=== PATIENT | male | born 1940 | race Caucasian/White ===

== ENCOUNTER 2016-11-28 05:29 | Day surgery (SDC) | payer MEDICARE, OTHER ==
[~2016-11-28] VITALS: Ht 177.8 cm; Wt 85.3 kg
[2016-11-28] VITALS (11 sets, daily range): BP systolic 131–155; BP diastolic 66–87; PULSE 60–67; RESP 12–21; O2SAT 98–100
[~2016-11-28 05:29] MED LIST: ASCO-294 PO; ASPI-973 PO; CALC-78 PO; CYCL5TAB PO; FOLI-52 PO; LIP40 PO; LISI10TA PO; NITR0.4T SL
[2016-11-28] MEDS ORDERED: Propofol 10,000 mCg/mL 20 mL Inj ONE (05:30)
[2016-11-28] MEDS ORDERED: Ondansetron 2 mg/mL 2 mL Inj ONE (05:30)
[2016-11-28] MEDS ORDERED: MetoCLOpramide 5 mg/mL 2 mL Inj ONE (05:30)
[2016-11-28] MEDS ORDERED: Dexamethasone 4 mg/mL Inj ONE (05:30)
[2016-11-28] MEDS ORDERED: Mitomycin Inj 40 MG in Syringe 1 EACH IRRIGATION ONE (06:00)
[2016-11-28] MEDS ORDERED: Levofloxacin 500 mg/100 mL D5W IV ONE (06:00)
[2016-11-28] MEDS: Lactated Ringer's 1,000 ML IV SCH ×2 (06:55→07:26)
--- NOTE | 2016-11-28 07:19 | PCM.HPANE ---
Patient Data Surgeon Admitting Provider: Attending Provider:Kar Paredes MD Primary Care Physician:Fernanda Chadwick DO Other Provider:Agata Dallasingham Anesthesia Reason for Visit Bladder Tumor Ht/WT & BMI Height (Feet): 5 Height (Inches): 10.00 Weight (Kilograms): 85.3 Body Mass Index 26.00 Allergies Coded Allergies: No Known Allergies (Verified Allergy, Unknown, 11/27/16) Past Anesthesia History Anesthesia History: Denies:: Anesthesia Reactions, Malignant Hyperthermia Diabetes History Hx Diabetes?: No MRSA MRSA: No Medications Blood Thinner: Aspirin Hypertension Medication: Yes (LISINOPRIL) Home Meds Incl Beta Samy: No Reported Medications Ascorbate Calcium (Vitamin C)500 Mg [id number] Mg PO DAILY 11/27/16 Nitroglycerin SL (Nitrostat)0.4 Mg Tab.subl0.4 Mg SL Q5MIN PRN chest pain #1 BOTTLE 11/27/16 Multivitamin/Iron/Folic Acid (Centrum Complete Multivit Tab)1 Each Tablet1 Each PO DAILY 11/27/16 Lisinopril 10 Mg [id number] Mg PO DAILY 30 Days Ref 0 11/27/16 Atorvastatin (Lipitor)40 Mg [id number] Mg PO DAILY Ref 0 11/27/16 Cyclobenzaprine 5 Mg Tablet5-10 Mg PO TID PRN Spasm 11/27/16 Calcium Carbonate/Vitamin D3 (Calcium 500 + Vit D Caplet)1 Each Tablet1 Each PO DAILY 11/27/16 Aspirin 81 Mg [id number] Mg PO DAILY Ref 0 11/27/16 History History of ENT Problems?: Yes Other HEENT Pertinent History: S/P TONSILLECTOMY Hx of Heart Problems?: Yes Cardiovascular History: Positive for:: Hypertension (HYPERLIPIDEMIA) Denies:: Heart Murmur (ECHO 07/2016 EF 55-60%) Hx of Respiratory Problem?: No Respiratory History: Denies:: Use of C-PAP Machine Hx Neurologic Problems?: Yes Neurological History: Positive for:: TIA (TIA VS TRANSIENT GLOBAL AMNESIA 2013) Hx of GI Problems?: No Hx of Problems?: Yes Other Pertinent History: HX BLADDER CA S/P CYSTOS,TURBT C/OF LUTS SMALL BLADDER TUMOR=CURRENT PROBLEM Male Hx: Positive for:: Prostate Problems (BPH W/ LUTS) Denies:: Scrotal Mass Testicular Surgery Skin History: Denies:: History Skin Disorders? Pressure Ulcers Hx Musculoskeletal Problems?: Yes Musculoskeletal History: Positive for:: Musculoskeletal Trauma (S/P ORIF RT HAND,RT KNEE SCOPE/MENISECTOMY) Denies:: Osteoarthritis (HX BONE LESION) Hx of Psycho/Social Problems?: No Hx Surgeries?: Yes (CYSTOS,TURBT,TONSILLECTOMY,ORIF RT HAND,RT KNEE SCOPE) Hx Any Other Health Problems?: Yes Other History: Positive for:: Cancer (BLADDER) Hospitalization Denies:: Endocrine Disease Thyroid Disease Hx Alcohol Use: NoHx Substance Use: No Smoking Status: Never Smoker Have You Smoked inLast 12 mo: No Stop/Bang Treated for Sleep Apnea?: No Do You Have a CPAP Machine?: No S-Snoring: Do You Snore Loudly: No T-Tired: feel tired, fatigued: No O-Obsered: Observed not breath: No P-Blood Pressure: treated: Yes B- Body Mass Index > 35 kg/m2: No A- Age over 50: Yes N- Neck Large Circumference: No G- Gender Male: Yes NUPUR Total Score: 3 NUPUR Risk Assessment: Low Risk, <3 Yes Risk Assessment Category Category 1A: Patient has history of documented sleep apnea, and HAS NOT received any narcotic, sedative or anesthesia administration during this stay. Category 1B: Patient has history of documented sleep apnea, and HAS received any narcotic , sedative or anesthesia administration during this stay Category 2: Patient has SUSPECTED Obstructive Sleep Apnea, and HAS received any narcotic , sedative or anesthesia administration during this stay. Category 3: Patient has SUSPECTED Obstructive Sleep Apnea and HAS NOT received narcotic, sedative or anesthesia administration during this stay. Category 4: Outpatient in Procedural Areas with known sleep apnea or who screen positive for High Risk via the STOP/BANG questionnaire. Exam Exam Vital Signs Vital Signs Date Time Temp Pulse Resp B/P Pulse Ox O2 Delivery O2 Flow Rate FiO2 11/28/16 06:55 35.8 65 14 131/77 98 Room Air General Appearance: Oriented X3 HEENT/AIRWAY: MP 2 Lungs: Normal Air Movement Heart: Regular Rate/Rhythm Meds/Labs/Diagnostics Admission Meds Current Medications Lactated Ringer's (Lr) 1,000 ml @ 120 mls/hr Q8H20M IV Last administered on t 06:55; Start 11/28/16 at 05:00; Stop 11/28/16 at 13:19 Plan Impression Patient chart reviewed, patient interviewed and anesthestic plan with risks, benefits, and alternatives discussed, and informed consent obtained. NPO Status: 1730 ASA Physical Status: ASA3 Severe Disease Anesthetic Plan: GA Bene/Risks/Altern/Consents: Yes HP Complete Prior to Induction: Yes Raphael Hunter MD Nov 28, 2016 07:19
[2016-11-28] MEDS ORDERED: Lactated Ringer's 1,000 ML IV SCH (07:48)
[2016-11-28] MEDS ORDERED: Lactated Ringer's 500 ML IV PRN (07:48)
[2016-11-28] MEDS ORDERED: Labetalol 5 mg/mL 4 mL Inj IV PRN (07:50)
[2016-11-28] MEDS ORDERED: fentaNYL-PF 50 mCg/mL 2 mL Inj IVPUSH PRN (07:50)
[2016-11-28] MEDS ORDERED: Ondansetron 2 mg/mL 2 mL Inj IVPUSH PRN (07:50)
[2016-11-28] MEDS ORDERED: EPHEDrine Sulfate 50 mg/mL Inj IVPUSH PRN (07:50)
[2016-11-28] MEDS ORDERED: Phenylephrine 10,000 mCg/mL Inj IVPUSH PRN (07:50)
[2016-11-28] MEDS ORDERED: Dexamethasone 4 mg/mL Inj IVPUSH PRN (07:50)
[2016-11-28] MEDS ORDERED: HYDROmorphone 1 mg/mL Inj IVPUSH PRN (07:50)
[2016-11-28] MEDS ORDERED: MetoCLOpramide 5 mg/mL 2 mL Inj IVPUSH PRN (07:50)
[2016-11-28] MEDS ORDERED: Belladonna Alk-Opium 60 mg Rectal Suppository RECTAL ONE ×2 (08:20→08:29)
--- NOTE | 2016-11-28 08:51 | PCM.SURGPO ---
Immediate Operative Note Date of Surgery: Nov 28, 2016 Pre Operative Diagnosis Bladder tumor Post Operative Diagnosis Bladder tumor, bladder lesion Procedure Cystoscopy, transurethral resection of bladder tumor (1-2cm), bladder biopsy, and Mitomycin intravesical instillation Surgeon and Credit Risk Modeler Surgeon: Kar Paredes MD Assistants: None Findings Cystoscopy revealed approx. 1cm papillary bladder tumor at L dome and approx. 0.5cm mildly edematous and mildly erythematous bladder lesion on R trigone ( approx. 1cm posterior to R ureteral orifice). Bladder tumor and bladder lesion were resected using bipolar loop electrocautery. Mitomycin intravesical instillation was performed at the end of the case. Complications There were no periprocedural complications identified. Surgical Specimen Removed: Yes Specimen sent to Pathology: Yes Surgical Specimen description: L dome bladder tumor, R trigone bladder lesion Anesthetic Administered: GA Grafts, Implants: Other (20F Locke catheter clamped) Output, Estimated Blood Loss: <5 Blood Admin during surgery: No Additional information Patient to be discharged home with Locke catheter when stable, to return to see me in 5-6 days for post-op visit and trial of void (AM appt.). Kar Paredes MD Nov 28, 2016 08:51
--- NOTE | 2016-11-28 08:57 | PCM.DISURG ---
Surgical Discharge Instruction Date of Service Nov 28, 2016 Dates of Hospitalization Date of Hospital Admission Nov 28, 2016 Providers Admitting Physician: Kar Paredes MD Primary Care Physician: Fernanda Chadwick DO Attending Physician: Kar Paredes MD Discharge Diagnosis Discharge Diagnosis Bladder tumor, bladder lesion Post Operative diagnosis Bladder tumor, bladder lesion Diet Discharge Diet: No restrictions, Other (Drink at least 8-12 8oz. glasses (2-3 liters) of fluids per day as long as there is blood in the urine) Activity Discharge Activity-General: No driving while taking narcotic, Other (No strenuous exercise/activity or moderate or heavy lifting (> 10 lbs.) as long as there is blood in the urine) Dressing and Incisional Care Hygiene: May shower Follow Up Plan Follow-up Provider (F9): Kar Paredes MD Follow-up appointment: Days (5-6 days for post-op visit and trial of void (AM appt.)) Call your provider for: Fever, Chills, Vomiting, Other (Non-draining Locke catheter) Kar Paredes MD Nov 28, 2016 08:57
[2016-11-28] MEDS ORDERED: HYDROcodone-APAP 5-325 mg Tablet PO PRN (09:00)
--- NOTE | 2016-11-28 09:33 | PCM.ANEP1 ---
Post Anesthesia Phase 1 PACU Phase 1 Assessment Date of Service: Nov 28, 2016 Vital Signs Vital Signs Date Time Temp Pulse Resp B/P Pulse Ox O2 Delivery O2 Flow Rate FiO2 11/28/16 09:20 36.3 63 12 143/66 99 Room Air 11/28/16 09:10 60 13 146/70 99 Room Air 11/28/16 09:05 36.5 60 13 135/69 98 Room Air 11/28/16 09:00 61 12 136/67 98 Room Air 11/28/16 08:55 64 15 135/70 98 Room Air 11/28/16 08:50 63 14 152/76 99 Room Air 11/28/16 08:45 65 14 152/75 98 Room Air 11/28/16 08:40 67 18 144/81 100 Simple Mask 8 11/28/16 08:37 36.5 64 21 155/87 100 Simple Mask 8 11/28/16 06:55 35.8 65 14 131/77 98 Room Air Anesthetic Administered: GA Level of Alertness: Awake, talking Pain: No Nausea or Vomiting: No Oxygen Delivery: Room Air Lungs: Normal Air Movement Raphael Hunter MD Nov 28, 2016 09:33
--- NOTE | 2016-11-28 09:33 | PCM.ANEP2 ---
Post Anesthesia Evaluation ASA/CMS Post Anesthesia VS in Patient's Normal Range?: Yes Resp Stable; Airway Patent?: Yes CV Function & Hydration Stable: Yes Mental Status Recovered?: Yes Pain control Satisfactory?: Yes N/V Control Satisfactory?: Yes Raphael Hunter MD Nov 28, 2016 09:33
--- NOTE | 2016-11-29 12:42 | OP ---
[address] [address] OPERATIVE REPORT PATIENT: ROMAN HALL : 1940 MR#: [id number] ADMIT: 11/28/2016 JOB ID: [id number] DATE OF SURGERY: 11/28/2016 PREOPERATIVE DIAGNOSIS(ES): Bladder tumor. POSTOPERATIVE DIAGNOSIS(ES): Bladder tumor, bladder lesion. PROCEDURE: Cystoscopy, transurethral resection of bladder tumor (1-2 cm), bladder biopsy, and Mitomycin intravesical instillation. SURGEON: Kar Paredes MD. ENGINE INSPECTOR: None. ANESTHESIA: General. ESTIMATED BLOOD LOSS: Less than 5 mL. SPECIMENS: Left dome bladder tumor, right trigone bladder lesion. DRAINS: A 20-Bur[place] Locke catheter, clamped. COMPLICATIONS: None. CONDITION: Stable. FINDINGS: Cystoscopy revealed an approximately 1 cm papillary bladder tumor at the left dome and an approximately 0.5 cm mildly edematous and mildly erythematous bladder lesion on the right trigone (approximately 1 cm posterior to the right ureteral orifice). Bladder tumor and bladder lesion were resected using bipolar loop electrocautery. Mitomycin intravesical instillation was performed at the end of the case. INDICATIONS: The patient is a 76-year-old male with a history of bladder cancer found on office cystoscopy to have a bladder tumor. The patient now presents for cystoscopy, transurethral resection of bladder tumor, and Mitomycin intravesical instillation. PROCEDURE: The patient was brought to the operating room and placed supine on the operating room table. The patient was given Levaquin IV antibiotics. Sequential compression device boots were placed. General anesthesia was administered. The patient was brought down into the dorsal lithotomy position. The patient was prepped and draped in standard surgical fashion. A 26-Burundian continuous flow resectoscope was placed into the distal urethra without difficulty. Cystoscopy revealed normal distal urethra, moderate to severe trilobar prostatic hypertrophy with moderately enlarged intravesical median prostatic lobe, moderately trabeculated bladder, no bladder calculi, an approximately 1 cm papillary bladder tumor at the left dome, an approximately 0.5 cm mildly edematous and mildly erythematous bladder lesion on the right trigone (approximately 1 cm posterior to the right ureteral orifice), and bilateral ureteral orifices in normal position. The bladder tumor and the bladder lesion were resected in their entirety using Thunderbeat bipolar loop electrocautery and sent to pathology for permanent specimen. The bases of the bladder tumor resected area and bladder biopsied area, including normal surrounding bladder mucosa, were fulgurated using bipolar loop electrocautery. Excellent hemostasis was achieved. No evidence for bladder perforation was seen. Bilateral ureteral orifices were seen to be intact and well preserved at the end of the case. The continuous flow resectoscope was removed from the patient. A 22 Bur[place] Locke catheter was placed through the urethra and into the bladder without difficulty. Locke catheter balloon was inflated with 10 mL sterile water. Locke catheter was initially placed to straight drainage, and the bladder was allowed to drain completely via the Locke catheter. Then Mitomycin intravesical instillation was performed by instilling Mitomycin solution into the bladder via the Locke catheter. Locke catheter was clamped. The skin was cleaned and dried. The patient was placed in supine position. The patient was awakened from general anesthesia and transferred to the recovery room in stable condition. The patient tolerated the procedure well. The plan is for the Locke catheter to be unclamped after 1 hour, to allow the Mitomycin solution to drain out of the bladder, and for the patient to be discharged home with the Locke catheter when stable and to return to see me in 5-6 days for a postoperative visit and trial of void. FREIDA
--- NOTE | 2016-12-02 14:15 | PATH ---
SURGICAL PATHOLOGY Attending Physician:Kar Paredes MD CASE STATUS: Signed Out PATIENT NAME: ROMAN HALL PID: [id number] : 1940 DATE COLLECTED:11/28/2016 16:58 SPECIMEN: 1: Bladder, Biopsy 2: Bladder, Biopsy CLINICAL HISTORY: BLADDER TUMOR 1). RIGHT TRIGONE BLADDER 2). LEFT DOME BLADDER TUMOR FINAL DIAGNOSIS: 1.RIGHT TRIGONE BLADDER BIOPSY: UNREMARKABLE BLADDER MUCOSA. NO EVIDENCE OF NEOPLASIA. MULTIPLE MICROSCOPIC LEVELS EXAMINED. 2.LEFT DOME BLADDER TUMOR: BLADDER MUCOSA WITH FOCAL EPITHELIAL ATYPIA, EVALUATION LIMITED BY CAUTERY ARTIFACT. NO PAPILLARY NEOPLASM IDENTIFIED. MULTIPLE MICROSCOPIC LEVELS EXAMINED. ICD10 code R31.9 NOTE: As part of a routine senior quality assurance engineer, Dr. Luis Manuel Emanuel has also reviewed this case and agrees with the diagnosis. GROSS DESCRIPTION: The specimen is received in two formalin filled containers labeled with the patient's name. 1). The specimen is sublabeled "right trigone bladder lesion" and consists of a 0.4 x 0.3 x 0.2 CM portion of tissue which is entirely submitted in cassette 1A. 2). The specimen is sublabeled "left dome bladder tumor" and consists of a 0.4 x 0.4 x 0.2 CM portion of tissue which is entirely submitted in cassette 2A. 11/28/2016 [facility] MICRO DESCRIPTION: See diagnosis. ICD-9 CODES: CPT CODES: 1: 75942 2: 92007 Electronically Signed Out Latosha Camarena MD [facility] Pathology [facility] [address] [facility], [place] [address] Technical component performed at [facility], [address] [place] [address] Ave[address], [place], [address]
== END 2016-11-28 23:59 | disposition home or self-care (01) ==
LOC: SAS 05:29
PROVIDERS: ATTEND Urology
DX: D49.4 Neoplasm of unspecified behavior of bladder (principal); I10 Essential (primary) hypertension; E78.5 Hyperlipidemia, unspecified; N40.1 Benign prostatic hyperplasia with lower urinary tract symptoms; R35.1 Nocturia; R33.9 Retention of urine, unspecified; Z86.73 Personal history of transient ischemic attack (TIA), and cerebral infarction without residual deficits; Z79.82 Long term (current) use of aspirin; Z87.891 Personal history of nicotine dependence
CPT/HCPCS: 52234; J1100; J2270; J2405; J2765; J7120; J9280